=== PATIENT | male | born 1990 | race Caucasian/White ===

== ENCOUNTER 2016-08-13 14:15 | Emergency (ER) | payer SELFPAY ==
[2016-08-13 14:41] VITALS: TEMP 97.3
--- NOTE | 2016-08-13 15:08 | ED.PDOC ---
History of Present Illness - General Chief Complaint: Lower Extremity Injury Stated Complaint: right foot,ankle and lower leg pain Time Seen by Provider: 08/13/16 14:23 Source: patient Exam Limitations: no limitations - History of Present Illness Initial Comments: The patient is a 25-year-old male presenting to the emergency room secondary to right lateral ankle pain present for one week. He does have extensive bruising in the area. He was apparently wrestling with his father when he injured it about a week ago. He does have some pain with movement and with weightbearing. He does appear to be neurovascularly intact. No other injuries. There is no pain about the knee. No pain in the foot. The pain is localized over the lateral malleolus of the right foot Occurred: last week Pain - Lower Extremity: moderate: Right Ankle Method of Injury: fell Improving Factors: immobilization Worsening Factors: movement Allergies/Adverse Reactions: Allergies NO KNOWN ALLERGY Allergy (Verified 10/30/15 00:30) Home Medications: Ambulatory Orders Tijfdcsuhkqbc-Zqgj-Bnphlrzivu [Fioricet] 1 ea PO Q8H PRN #21 tab 08/13/16 Review of Systems - Review of Systems Constitutional: States: no symptoms reported EENTM: States: no symptoms reported Respiratory: States: no symptoms reported Cardiology: States: no symptoms reported Gastrointestinal/Abdominal: States: no symptoms reported Genitourinary: States: no symptoms reported Musculoskeletal: States: see HPI Skin: States: no symptoms reported - chronic scarring only Neurological: States: no symptoms reported - o new changes Endocrine: States: no symptoms reported All other Systems: No Change from Baseline Past Medical History (General) - Patient Medical History Hx Seizures: No Hx Stroke: No Hx Dementia: No Hx Asthma: No Hx of COPD: No Hx Cardiac Disorders: No Hx Congestive Heart Failure: No Hx Pacemaker: No Hx Hypertension: No Hx Thyroid Disease: No Hx Diabetes: No Hx Gastroesophageal Reflux: No Hx Renal Disease: No Hx of HIV: No Hx MRSA: No - Vaccination History Hx Tetanus, Diphtheria Vaccination: No Hx Influenza Vaccination: Yes Hx Pneumococcal Vaccination: No - Social History Hx Tobacco Use: Yes Hx Chewing Tobacco Use: No Hx Alcohol Use: Yes Hx Substance Use: Yes Hx Substance Use Treatment: No Hx Depression: No Hx Physical Abuse: No Hx Emotional Abuse: No Hx Suspected Abuse: No - Female History Patient : No Family Medical History - Family History Mother Family History: Unknown Living Status: Still Living Physical Exam - Physical Exam General Appearance: Alert, Comfortable, No apparent distress Eyes, Ears, Nose, Throat: PERRL/EOMI Cardiovascular/Respiratory: normal peripheral pulses, no respiratory distress Thigh/Hip: normal inspection, non-tender, no evidence of injury, normal ROM Leg: pain, soft tissue tenderness, swelling, other - see history of present illness. He does appear to be neurovascularly intact distally. Knee: normal inspection, non-tender, no evidence of injury, normal ROM Ankle: other - see history of present illness Foot: non-tender, no evidence of injury, normal ROM - there is bruising that appears to track down from the ankle Neuro/Tendon: normal sensation - no changes from baseline, normal tendon functions Mental Status: alert, oriented x 3 Skin: normal color - with the exception of the bruising Comments: the patient is a 11-year-old female presenting to the emergency room secondary to what appears to be a left lateral hamstring strain. No evidence of any bony trauma. No clinical evidence at this time of a muscle tear. Ibuprofen can be used for discomfort. A heat pad and icy hot or Biofreeze may prove beneficial topically. Limited athletics for the next week may be beneficial. She does need to try to stretch out the muscle several times a day to prevent further spasm. ER warnings were given. Follow-up with primary care doctor next week. Progress - Progress Progress: 08/13/16 15:08 the patient is a 25-year-old male presenting with significant bruising to the right lower extremity after a fall 1 week ago. He has been ambulatory on it since. The patient was placed in a walking boot. He appears to have a spiral fracture in the distal third of the right fibula. He needs to follow-up with orthopedics in one week for a repeat x-ray to make sure that it is healing appropriately. Fioricet will be written for pain for as needed use. ER warnings were given. Departure - Departure Clinical Impression: Fibula fracture Qualifiers: Encounter type: initial encounter Fibula location: distal Fracture type: closed Fracture morphology: unspecified fracture morphology Laterality: right Qualified Code(s): S82.831A - Other fracture of upper and lower end of right fibula, initial encounter for closed fracture Disposition: Discharge to Home or Self Care Condition: Fair Departure Forms: ED Discharge - Pt. Copy, Patient Portal Self Enrollment Instructions: Ankle Fracture Diet: regular diet Activity: no pushing/pulling with affected limb Prescriptions: Vhuvcdrloawsg-Deqr-Wgagvqajlh [Fioricet] 1 ea PO Q8H PRN #21 tab PRN Reason: Pain Home Medications: Ambulatory Orders Nloevlfjjhilw-Jmas-Jrrfvrzssi [Fioricet] 1 ea PO Q8H PRN #21 tab 08/13/16 Additional Instructions: the patient is a 25-year-old male presenting with significant bruising to the right lower extremity after a fall 1 week ago. He has been ambulatory on it since. The patient was placed in a walking boot. He appears to have a spiral fracture in the distal third of the right fibula. He needs to follow-up with orthopedics in one week for a repeat x-ray to make sure that it is healing appropriately. Fioricet will be written for pain for as needed use. ER warnings were given.
--- NOTE | 2016-08-13 15:29 | RAD ---
EXAM DESCRIPTION: Ankle,Right 3 Views CLINICAL HISTORY: 25 years Male, bruising,swelling,pain-fell a week ago IMPRESSION: 3 views of right ankle. Obliquely oriented fracture through the distal fibula. This results in widening of the lateral clear space. Involvement of the syndesmosis is a possibility. No additional fractures noted. Soft tissue swelling about the lateral ankle. Electronically signed by: Tomy Drew MD 08/13/2016 3:13 PM CDT
--- NOTE | 2016-08-13 15:32 | RAD ---
EXAM DESCRIPTION: Tibia/Fibula,Right CLINICAL HISTORY: 25 years Male, bruising 1 week. IMPRESSION: 2 views of the right tibia and fibula reveal no evidence of a proximal tibial fibular fracture. Redemonstration fracture distal fibula and likely involving the syndesmosis. Electronically signed by: Tomy Drew MD 08/13/2016 3:15 PM CDT
[2016-08-13 16:17] VITALS: BP 126/81; O2SAT 99
== END 2016-08-13 16:07 | disposition home or self-care (01) ==
LOC: ER 14:15
DX: S82.831A Other fracture of upper and lower end of right fibula, initial encounter for closed fracture (principal); Z87.891 Personal history of nicotine dependence; Y93.83 Activity, rough housing and horseplay